=== PATIENT | male | born 1990 | race Hispanic/Latino ===

== ENCOUNTER 2018-10-03 23:31 | Emergency (ER) | payer BC ==
[2018-10-04] MEDS ORDERED: Ketorolac Tromethamine 30 MG/ML VIAL ONE (00:17)
[2018-10-04 00:52] LABS: Band 1 % (5-11); Hemoglobin 14.1 g/dL (14.0-18.0); Lymphocytes 60 % (21-51); MDiff Complete? YES; Mean Corpuscular HGB CONC 33.6 g/dL (32.0-36.0); Mean Corpuscular Hemoglobin 31.2 pg (27.0-31.0); Mean Corpuscular Volume 92.6 fL (78.0-98.0); Mean Platelet Volume 7.3 fL (7.4-10.4); Monocytes 4 % (0-10); Neutrophil 35 % (42-75); Platelet Count 216 thou/uL (130-400); Platelet Morphology Comment Appears Adequate; RBC Distribution Width 11.7 % (11.5-14.5); Red Blood Cell (RBC) Count 4.53 mill/uL (4.70-6.10); White Blood Cell (WBC) Count 4.3 thou/uL (4.8-10.8)
[2018-10-04 00:56] LABS: ALT (SGPT) 41 U/L (8-55); AST (SGOT) 30 U/L (5-34); Albumin 4.7 g/dL (3.5-5.0); Alkaline Phosphatase 88 U/L (40-150); Anion Gap 13 mmol/L (10-20); BUN (Urea Nitrogen) 26 mg/dL (8.9-20.6); Bilirubin, Total 0.4 mg/dL (0.2-1.2); Calc. Creatinine Clearance 0 mL/min (70-130); Calcium 9.8 mg/dL (7.8-10.44); Carbon Dioxide 24 mmol/L (22-29); Chloride 103 mmol/L (98-107); Estimated GFR-MDRD 86; Globulin 2.8 g/dL (2.4-3.5); Glucose 98 mg/dL (70-105); Potassium 3.7 mmol/L (3.5-5.1); Protein, Total 7.5 g/dL (6.0-8.3); Sodium 136 mmol/L (136-145)
--- NOTE | 2018-10-04 09:15 | CT ---
PRELIMINARY REPORT/[facility]/EMERGENTY AFTER-HOURS PROCEDURE CT Angiography Chest With Contrast EXAM DATE/TIME: 10/04/2018 2:08 AM CLINICAL HISTORY: 27 years old, male; Pain; Chest pain; Patient HX: Er 9; M27 presents ed for dyspnea starting at 530pm today. PT reports chest pain starting prior to taking a shower radiating to his back. PT reports iss ue came back when he tried to sleep. PT denies issue occuring before. PT denies cough and congestion. TECHNIQUE: Axial computed tomographic angiography images of the chest with intravenous contrast using CT angiogr aphy protocol. MIP reconstructed images were created and reviewed. COMPARISON: No relevant prior studies available. FINDINGS: Pulmonary arteries: Normal. No pulmonary emboli. Aorta: Normal. No aortic aneurysm. No aortic dissection. Lungs: Normal. No consolidation. No masses. Pleural space: Normal. No pneumothorax. No pleural effusion. Heart: Normal. No cardiomegaly. No pericardial effusion. Upper abdomen: The visualized superior portions of the abdomen are unremarkable. Lymph nodes: Unremarkable. No enlarged lymph nodes. Bones/joints: Unremarkable. No acute fracture. Soft tissues: The soft tissues of the axilla, neck and chest wall are unremarkable. IMPRESSION: No evidence of pulmonary embolus. No evidence of acute pulmonary pathology. Thank you for allowing us to participate in the care of your patient. Dictated and Authenticated by: Aaron Frost MD 10/04/2018 2:42 AM Central Time ([place] & [place]) FINAL REPORT CT PULMONARY ANGIOGRAM WITH IV CONTRAST AND 3D POSTPROCESSING: I agree with the preliminary report given by Dr. Aaron Frost of [facility]. POS: [facility]
[2018-10-04] MEDS ORDERED: ISOVUE-370 76%-LOCM 1 ML ONE (10:14)
--- NOTE | 2018-10-04 10:32 | RAD ---
RADIOGRAPH CHEST 2 VIEWS: HISTORY: A 27-year-old male with dyspnea and chest pain. FINDINGS: The lungs are clear. The cardiomediastinal silhouette and hilar shadows are normal. There is no ple ural effusion. The osseous structures appear normal. There is no pneumothorax. IMPRESSION: Normal. jn [] POS: [facility]
== END 2018-10-04 03:15 | disposition home or self-care (01) ==
LOC: ERS 23:31
DX: R07.89 Other chest pain (principal)
CPT/HCPCS: 71046; 71275; 80053; 84484; 85025; 85379; 93005; 96374; J1885; Q9966